=== PATIENT | female | born 1965 | race Caucasian/White ===

== ENCOUNTER → 2020-04-11 | Outpatient (CLI) | payer MEDICAID ==
[~2020-04-11] MED LIST: AMLO10TA80 PO; ASPI-1406 PO; CHOL400D7 PO; ENAL20TA18 PO; EZET10TA13 PO; GABA-533 PO; HYDR25TA PO; INSU100I24 SQ; INSU100V34 SQ; METO25TA6 PO; PANT40TA51 PO; SEMA1PEN SQ; SERT25TA74 PO
== END | disposition home or self-care (01) ==
LOC: LAB 08:40
PROVIDERS: ATTEND Ophthalmology
DX: Z01.812 Encounter for preprocedural laboratory examination (principal); Z20.822 Contact with and (suspected) exposure to COVID-19
CPT/HCPCS: 87426

== ENCOUNTER → 2020-04-12 | Day surgery (SDC) | payer MEDICAID ==
[~2020-04-12] VITALS: Ht 165.1 cm; Wt 86.6 kg
[~2020-04-12] MED LIST changes: +ACETYLCHOLINE CHLORIDE INTRAOCULAR SOLUTION 1:100 ELECTROLYTE DILUENT IO ONE; +BALANCED SALT IRRIG SOLN 15ML ONE; +BALANCED SALT IRRIG SOLN COMB1 500ML OP SCH; +CIPROFLOXACIN 0.3% OPHTH SOLN 2.5ML ONE; +CYCLOPENTOLATE HCL 1% OPHTH DROPS 2ML LEFTEYE SCH; +FENTANYL CITRATE/PF 50MCG/ML 2ML VIAL ONE; +HYALURONATE SODIUM 10 MG/ML 0.55ML SYRINGE IO ONE; +HYDROCODONE/ACETAMINOPHEN 5/325MG TABLET PO PRN; +KETOROLAC 30MG/ML VIAL ONE; +LIDOCAINE HCL/PF 2% 20 MG/ML 10ML VIAL ONE; +MIDAZOLAM HCL 2 MG/2 ML VIAL ONE; +NEO/POLYMYX B SULF/DEXAMETH OPHTH OINT 3.5GM ONE; +PHENYLEPHRINE HCL 10% OPHTH DROPS 5ML LEFTEYE SCH; +PREDNISOLONE ACETATE 1% OPHTH DROPS 5ML ONE; +SODIUM CHLORIDE 0.9% 1,000 ML IV SCH; +TETRACAINE 0.5% OPHTH DROPS 4ML ONE; +TROPICAMIDE 1% OPHTH DROPS 15ML LEFTEYE SCH; +TRYPAN BLUE 0.5 ML DISP.SYRIN IO ONE
[2020-04-12 09:57] VITALS: BP 124/80
== END | disposition home or self-care (01) ==
LOC: OR 06:50
PROVIDERS: ATTEND Ophthalmology
DX: E11.36 Type 2 diabetes mellitus with diabetic cataract (principal); H25.89 Other age-related cataract; E11.40 Type 2 diabetes mellitus with diabetic neuropathy, unspecified; E11.65 Type 2 diabetes mellitus with hyperglycemia; I10 Essential (primary) hypertension; E78.00 Pure hypercholesterolemia, unspecified; M17.12 Unilateral primary osteoarthritis, left knee; Z79.82 Long term (current) use of aspirin; Z79.4 Long term (current) use of insulin; Z79.899 Other long term (current) drug therapy; Z98.890 Other specified postprocedural states
CPT/HCPCS: 66984; 82962; J1885; J2250; J3010; J3490; Q9957; V2632